=== PATIENT | female | born 1955 | race Hispanic/Latino ===

== ENCOUNTER 2018-08-25 16:03 | Emergency (ER) | payer OTHER ==
[2018-08-25 16:14] VITALS: BP 157/102; PULSE 78; RESP 18; TEMP 98.2; O2SAT 99
[2018-08-25] MEDS ORDERED: Bacitracin 500 Units/gm Oint Foilpak UD ONE (16:31)
[2018-08-25 17:04] LABS: BASO % 0.7 % (0.0-2.0); EOS # 0.2 K/uL (0.0-0.7); EOS % 3.9 % (0.0-4.0); HEMOGLOBIN 14.5 g/dL (12.0-16.0); LYMPH % 19.7 % (20.0-40.0); MEAN CELL VOLUME 88.7 fl (81.0-99.0); MEAN CORPUSCULAR HEMOGLOBIN 28.8 pg (27.0-31.0); MEAN CORPUSCULAR HGB CONC 32.5 g/dL (33.0-37.0); MEAN PLATELET VOLUME 8.4 fl (7.2-11.7); MONO # 0.4 K/uL (0.0-0.8); MONO % 7.6 % (0.0-10.0); NEUT # 3.5 K/uL (1.8-7.0); NEUT % 68.1 % (50.0-75.0); NRBC % 0.1 % (0.0-0.0); RBC 5.03 Mil/uL (3.80-5.20); RED CELL DISTRIBUTION WIDTH 15.4 % (11.5-14.5); WHITE BLOOD COUNT 5.1 K/uL (4.8-10.8)
--- NOTE | 2018-08-25 17:14 | ED PDOC ---
Syncope/Near Syncope/Dizziness Time Seen by Provider: 08/25/18 16:17 Chief Complaint (Nursing): Syncope Chief Complaint (Provider): Syncope History Per: Patient History/Exam Limitations: no limitations Additional Complaint(s): Pt BIBA after syncopal episode. Pt states she got out of [employer] and walked toward building when had unwitnessed syncopal episode, woke up to paramedics but felt like last few days were a dream, took 15 minutes to return to normal. Denies CP, SOB, palpitations, FUENTES, visual changes, paresthesias, weakness. Against Medical Advice - AMA Patient Left Against Medical Advice: The patient declines admission to the hospital and wishes to leave the Emergency Department. This action is against my medical advice. This decision was made with informed refusal. The patient was told that admission to the hospital is necessary. Explanation of the reasons why were discussed. The risks of leaving were explained to the patient and include, but are not limited to, worsening of known or currently unknown conditions, permanent disability and from undiagnosed or untreated conditions. The patient has the capacity to make this informed decision and understands my explanation of the current medical problem and risks of leaving. The patient voluntarily accepts these risks and signed an AMA form documenting our conversation. The patient was given the opportunity to ask questions and reconsider. The patient was encouraged to return to the Emergency Department at any time for further care. Past Medical History Reviewed: Nursing Documentation, Vital Signs Vital Signs: Last Vital Signs Temp 98.2 F 08/25/18 16:09 Pulse 78 08/25/18 16:09 Resp 18 08/25/18 16:09 BP 157/102 H 08/25/18 16:09 Pulse Ox 99 08/25/18 16:09 - Medical History PMH: Depression - Surgical History Surgical History: - Family History Family History: States: Unknown Family Hx - Living Arrangements Living Arrangements: Alone - Social History Current smoker - smoking cessation education provided: No Alcohol: None - Allergies Allergies/Adverse Reactions: Allergies Allergy/AdvReac Type Severity Reaction Status Date / Time Penicillins Allergy RASH Verified 08/25/18 16:09 Review of Systems Constitutional: Negative for: Fever Eyes: Negative for: Vision Change Cardiovascular: Negative for: Chest Pain, Palpitations Respiratory: Negative for: Cough, Shortness of Breath Skin: Negative for: Rash, Lesions Neurological: Negative for: Weakness, Numbness, Incoordination, Change in Speech, Confusion, Seizures, Altered Mental Status, Headache, Dizziness Physical Exam - Reviewed Nursing Documentation Reviewed: Yes Vital Signs Reviewed: Yes - Physical Exam Appears: Positive for: Well, No Acute Distress Head Exam: Positive for: ATRAUMATIC, NORMAL INSPECTION Skin: Positive for: Normal Color, Warm, Dry Eye Exam: Positive for: Normal appearance, EOMI, PERRL ENT: Positive for: Other (Superficial abrasion R face (lateral to eyelid), abrasions to R forehead, abrasion R maxilla) Neck: Positive for: Normal, Painless ROM, Supple Cardiovascular/Chest: Positive for: Regular Rate, Rhythm Respiratory: Positive for: Normal Breath Sounds Gastrointestinal/Abdominal: Positive for: Normal Exam Extremity: Positive for: Normal ROM Neurological/Psych: Positive for: Awake, Alert, Symmetric/Intact Strength, Orien amanuel, materials scheduler II-XII. Negative for: Lethargic, Motor/Sensory Deficits, Facial Droop - Laboratory Results Result Diagrams: 08/25/18 17:00 08/25/18 17:00 - ECG O2 Sat by Pulse Oximetry: 99 Medical Decision Making Medical Decision Makin yo female with syncope and facial injury. - labs - EKG - CXR - CT head - Adacel - wound care Accession No. : [id number] Patient Name / ID : JEFFREY Kang / [id number] Exam Date : 08/25/2018 16:51:39 ( Approved ) Study Comment : Sex / Age : F / 63Y Creator : kiesha macdonald Dictator : Jerzy Jaime MD Object Oriented Programmer : Hide Cleaner : Jerzy Jaime MD Approver2 : Report Date : 08/25/2018 17:13:26 My Comment : Date of service: 08/25/2018 HISTORY: Syncope COMPARISON: No prior. FINDINGS: LUNGS: No active pulmonary disease. PLEURA: No significant pleural effusion identified, no pneumothorax apparent. CARDIOVASCULAR: No atherosclerotic calcification present No radiographic findings to suggest acute or significant cardiovascular disease. OSSEOUS STRUCTURES: No significant abnormalities. VISUALIZED UPPER ABDOMEN: Normal. OTHER FINDINGS: None. IMPRESSION: No active disease. Accession No. : [id number] Patient Name / ID : JEFFREY Kang / [id number] Exam Date : 08/25/2018 17:17:07 ( Approved ) Study Comment : Sex / Age : F / 63Y Creator : Allison Riley MD Dictator : Allison Riley MD Object Oriented Programmer : Hide Cleaner : Allison Riley MD Approver2 : Report Date : 08/25/2018 17:47:38 My Comment : Date of service: 08/25/2018 PROCEDURE: CT HEAD WITHOUT CONTRAST. HISTORY: Syncope COMPARISON: None available. TECHNIQUE: Axial computed tomography images were obtained through the head/brain without intravenous contrast. Radiation dose: Total exam DLP = 1533.17 mGy-cm. This CT exam was performed using one or more of the following dose reduction techniques: Automated exposure control, adjustment of the mA and/or kV according to patient size, and/or use of iterative reconstruction technique. FINDINGS: HEMORRHAGE: No intracranial hemorrhage. BRAIN: Casarez-white matter differentiation is preserved. There is no mass, mass effect or abnormal extra-axial fluid collection. There is no territorial infarction. The midline sagittal structures are normal. VENTRICLES: There is mild age-related global parenchymal volume loss and proportionate enlargement of the ventricles and cortical sulci. CALVARIUM: There is no calvarial fracture or extracranial soft tissue swelling. PARANASAL SINUSES: There is fluid and aerosolized secretions in the sphenoid sinus, fluid in the right maxillary sinus, complete opacification of the left maxillary sinus and severe mucoperiosteal thickening in the ethmoid air cells. There is maxillary and sphenoid osteoneogenesis. MASTOID AIR CELLS: Predominantly clear. OTHER FINDINGS: None. IMPRESSION: No acute intracranial abnormality. Chronic pansinusitis. Fluid in the right maxillary sinus and sphenoid sinus with aerosolized secretions may represent superimposed acute sinusitis in the appropriate clinical setting. Accession No. : [id number] Patient Name / ID : JEFFREY Kang / [id number] Exam Date : 08/25/2018 17:17:07 ( Approved ) Study Comment : Sex / Age : F / 63Y Creator : Jerzy Jaime MD Dictator : Jerzy Jaime MD Object Oriented Programmer : Hide Cleaner : Jerzy Jaime MD Approver2 : Report Date : 08/25/2018 18:05:51 My Comment : Date of service: 08/25/2018 PROCEDURE: CT MAXILLOFACIAL BONES WITHOUT CONTRAST HISTORY: Facial injury COMPARISON: None available. TECHNIQUE: Contiguous axial CT images of the maxillofacial bones were obtained. Coronal an d sagittal reformats were generated. Radiation dose: Total exam DLP = 1533.17 mGy-cm. This CT exam was performed using one or more of the following dose reduction techniques: Automated exposure control, adjustment of the mA and/or kV according to patient size, and/or use of iterative reconstruction technique. FINDINGS: NASAL BONES: Unremarkable. ORBITS: Unremarkable. PARANASAL SINUSES/ MASTOIDS: Bilateral maxillary sinusitis left greater than right. Unilateral, left om you complex disease. Ethmoid air cell disease left greater than right. Sphenoid air cell disease. Air-fluid level in the left seen 0 8 air cell. Trace frontal air cell disease. MAXILLA: Unremarkable. MANDIBLE/ TEMPOROMANDIBULAR JOINTS: Unremarkable. SKULL BASE: Unremarkable. TEMPORAL BONES: Middle ears and mastoid grossly unremarkable. OTHER FINDINGS: Soft tissue injury adjacent to the zygomatic arch and lateral right orbital region. No evidence of ocular abnormality associated with this finding. IMPRESSION: Right periorbital and lateral orbital soft tissue swelling/injury. No ocular abnormality. Pansinusitis with both acute and chronic sinus disease described in greater detail above. Disposition - Clinical Impression Clinical Impression: Syncope, Facial injury - Disposition Disposition: Against Medical Advice Disposition Time: 18:34 Condition: UNKNOWN Instructions: Syncope (Fainting), Skin Abrasions, Wound Care Forms: [employer] [employer] (Montenegrin)
[2018-08-25 17:18] LABS: INR 1.1; PROTHROMBIN TIME 12.3 Seconds (9.8-13.1)
[2018-08-25 17:19] LABS: ALB/GLOB RATIO 1.2 (1.0-2.1); ALBUMIN 4.3 g/dL (3.5-5.0); ALT/SGPT 74 U/L (9-52); AST/SGOT 57 U/L (14-36); BLOOD UREA NITROGEN 18 mg/dl (7-17); CALCIUM 9.6 mg/dL (8.4-10.2); GFR NON-AFRICAN AMERICAN > 60
[2018-08-25 17:21] LABS: PARTIAL THROMBOPLASTIN TIME 37.6 Seconds (25.6-37.1)
--- NOTE | 2018-08-25 17:22 | RAD ---
Date of service: 08/25/2018 HISTORY: Syncope COMPARISON: No prior. FINDINGS: LUNGS: No active pulmonary disease. PLEURA: No significant pleural effusion identified, no pneumothorax apparent. CARDIOVASCULAR: No atherosclerotic calcification present No radiographic findings to suggest acute or significant cardiovascular disease. OSSEOUS STRUCTURES: No significant abnormalities. VISUALIZED UPPER ABDOMEN: Normal. OTHER FINDINGS: None. IMPRESSION: No active disease.
[2018-08-25] MEDS ORDERED: Tdap Vaccine 0.5 ml Vial (10-64 yrs) IM ONE (17:24)
--- NOTE | 2018-08-25 17:51 | CT ---
Date of service: 08/25/2018 PROCEDURE: CT HEAD WITHOUT CONTRAST. HISTORY: Syncope COMPARISON: None available. TECHNIQUE: Axial computed tomography images were obtained through the head/brain without intravenous contrast. Radiation dose: Total exam DLP = 1533.17 mGy-cm. This CT exam was performed using one or more of the following dose reduction techniques: Automated exposure control, adjustment of the mA and/or kV according to patient size, and/or use of iterative reconstruction technique. FINDINGS: HEMORRHAGE: No intracranial hemorrhage. BRAIN: Casarez-white matter differentiation is preserved. There is no mass, mass effect or abnormal extra-axial fluid collection. There is no territorial infarction. The midline sagittal structures are normal. VENTRICLES: There is mild age-related global parenchymal volume loss and proportionate enlargement of the ventricles and cortical sulci. CALVARIUM: There is no calvarial fracture or extracranial soft tissue swelling. PARANASAL SINUSES: There is fluid and aerosolized secretions in the sphenoid sinus, fluid in the right maxillary sinus, complete opacification of the left maxillary sinus and severe mucoperiosteal thickening in the ethmoid air cells. There is maxillary and sphenoid osteoneogenesis. MASTOID AIR CELLS: Predominantly clear. OTHER FINDINGS: None. IMPRESSION: No acute intracranial abnormality. Chronic pansinusitis. Fluid in the right maxillary sinus and sphenoid sinus with aerosolized secretions may represent superimposed acute sinusitis in the appropriate clinical setting.
--- NOTE | 2018-08-25 18:09 | CT ---
Date of service: 08/25/2018 PROCEDURE: CT MAXILLOFACIAL BONES WITHOUT CONTRAST HISTORY: Facial injury COMPARISON: None available. TECHNIQUE: Contiguous axial CT images of the maxillofacial bones were obtained. Coronal and sagittal reformats were generated. Radiation dose: Total exam DLP = 1533.17 mGy-cm. This CT exam was performed using one or more of the following dose reduction techniques: Automated exposure control, adjustment of the mA and/or kV according to patient size, and/or use of iterative reconstruction technique. FINDINGS: NASAL BONES: Unremarkable. ORBITS: Unremarkable. PARANASAL SINUSES/ MASTOIDS: Bilateral maxillary sinusitis left greater than right. Unilateral, left om you complex disease. Ethmoid air cell disease left greater than right. Sphenoid air cell disease. Air-fluid level in the left seen 0 8 air cell. Trace frontal air cell disease. MAXILLA: Unremarkable. MANDIBLE/ TEMPOROMANDIBULAR JOINTS: Unremarkable. SKULL BASE: Unremarkable. TEMPORAL BONES: Middle ears and mastoid grossly unremarkable. OTHER FINDINGS: Soft tissue injury adjacent to the zygomatic arch and lateral right orbital region. No evidence of ocular abnormality associated with this finding. IMPRESSION: Right periorbital and lateral orbital soft tissue swelling/injury. No ocular abnormality. Pansinusitis with both acute and chronic sinus disease described in greater detail above.
--- NOTE | 2018-08-26 17:35 | CARD ---
APPROVED REPORT Date of service: 08/25/2018 EKG Measurement Heart [id number] IL [id number] [id number] <Conclusion> Normal sinus rhythm Left bundle branch block Abnormal ECG
== END 2018-08-25 19:00 | disposition left against medical advice (07) ==
LOC: H.ER 16:03
DX: R55 Syncope and collapse (principal); S09.93XA Unspecified injury of face, initial encounter; W19.XXXA Unspecified fall, initial encounter; Y92.89 Other specified places as the place of occurrence of the external cause; Z88.0 Allergy status to penicillin